=== PATIENT | male | born 1990 | race Caucasian/White ===

== ENCOUNTER → 2021-03-11 13:35 | Outpatient (BNVA) | payer SELFPAY | PROVIDERS: Visit Provider Internal Medicine ==

== ENCOUNTER 2022-06-03 18:43 | Emergency (ER) | payer OTHER, SELFPAY ==
--- NOTE | ~2022-06-03 | CT_ITS ---
EXAMINATION: CT ABDOMEN AND PELVIS WITHOUT CONTRAST CLINICAL INFORMATION: Abdominal pain. Diarrhea. COMPARISON: None TECHNIQUE: Multidetector volumetric imaging was performed from the superior aspect of the liver through the pubic symphysis. Sagittal and coronal reformatted images were obtained on the technologist's workstation. This CT examination was performed using dose optimization techniques as appropriate, variously including the following: *Automated exposure control *Adjustment of mA and/or kV according to patient size (this includes techniques or standardized protocols for targeted exams where dose is matched to indication/reason for exam; i.e. extremities or head) *Use of iterative reconstruction technique DLP: 1475 mGy-cm FINDINGS: LUNG BASES: The visualized lung bases are unremarkable. LIVER, GALLBLADDER, AND BILIARY TREE: Liver normal in size, contour and morphology. Diffuse hepatic steatosis. No focal liver lesions. Gallbladder unremarkable. No biliary dilatation. PANCREAS: Unremarkable. SPLEEN: Unremarkable. ADRENAL GLANDS: Unremarkable. KIDNEYS AND URETERS: The kidneys are normal in size, shape, and attenuation. No hydronephrosis, hydroureter, or calculi seen. No perinephric stranding. BLADDER: Unremarkable. GASTROINTESTINAL TRACT: The small and large bowel are unremarkable. The appendix is unremarkable. ABDOMINAL WALL: No significant hernia is appreciated. LYMPH NODES: Normal. VASCULAR: Unremarkable. PELVIC VISCERA: Unremarkable. OSSEOUS STRUCTURES: Unremarkable. CT/CT abdomen pelvis wo con IMPRESSION: No acute findings. Hepatic steatosis.
--- NOTE | ~2022-06-03 | XR_ITS ---
EXAMINATION: XR CHEST CLINICAL INFORMATION: Chest pain COMPARISON: None TECHNIQUE: 2 views of the chest were obtained. FINDINGS: No significant abnormality is noted involving the heart, lungs, mediastinum, bony thorax or soft tissues. XR/XR chest 2V IMPRESSION: Unremarkable examination.
[2022-06-03 19:21] VITALS: BP 158/74; PULSE 74; RESP 16; TEMP 36.8; O2SAT 100; BMI 39.9
[2022-06-03 19:41] LABS: Glucose, Whole Blood 167 mg/dL (60-115)
[2022-06-03 21:30] LABS: MANUAL DIFF FLAG NO
[2022-06-03 21:32] LABS: Basophils Percent Auto 0.2 % (0-2); Eosinophils Absolute Auto 0.1 X10*3/uL (0.0-0.4); Eosinophils Percent Auto 0.9 % (0-4); Hematocrit 43.2 % (42.0-52.0); Hemoglobin 14.9 g/dl (14.0-18.0); Imm Gran Abs Auto 0.05 X10*3/uL (0.00-0.03); Imm Gran Pct Auto 0.3 % (0.0-0.4); Lymphocytes Absolute Auto 1.5 X10*3/uL (1.2-4.9); Lymphocytes Percent Auto 9.5 % (20-40); Mean Corpuscular HGB Conc 34.5 g/dl (31.0-36.0); Mean Corpuscular Hemoglobin 25.5 pg (27.0-33.0); Mean Platelet Volume 9.9 fL (9.4-12.4); Monocytes Absolute Auto 1.1 X10*3/uL (0.1-1.2); Monocytes Percent Auto 7.1 % (2-11); Neutrophils Absolute Auto 13.2 x10*3/uL (2.0-8.3); Platelet Count 328 X10*3/uL (160-400); Red Blood Count 5.84 X10*6/uL (4.60-5.80); Red Cell Distribution Width 13.7 % (11.0-16.0); White Blood Count 16.1 X10*3/uL (4.8-10.8)
[2022-06-03 21:48] LABS: Alanine Aminotransferase 17 U/L (0-40); Albumin Level 4.3 g/dL (3.5-5.0); Alkaline Phosphatase 61 U/L (39-117); Anion Gap 12 (12-20); Aspartate Amino Transferase 9 U/L (5-37); Bilirubin Direct 0.2 mg/dL (0.0-0.5); Bilirubin Total 0.5 mg/dL (0.0-1.0); Blood Urea Nitrogen 11 mg/dL (9-16); Carbon Dioxide 26 mmol/L (22-29); Chloride 105 mmol/L (96-108); Creatinine Clr Calc Pharmacy 144.4; Estimated Glomerular Filt Rate > 60; Glucose Random 205 mg/dL (60-115); Lipase 36 U/L (8-78); Potassium 4.3 mmol/L (3.3-5.1); Sodium 139 mmol/L (135-145); Total Protein 7.7 g/dL (6.5-8.0)
--- NOTE | 2022-06-04 03:48 | ED.ABDPAIN ---
HPI - Abdominal Pain General Chief Complaint: Abdominal Pain Stated Complaint: Abdominal Pain Time Seen by Provider: 06/04/22 03:34 Source: patient Mode of arrival: ambulatory Limitations: no limitations History of Present Illness HPI narrative: 32-year-old male who presents emergency department for evaluation of chest pain, abdominal pain, nausea, vomiting and diarrhea. Patient states that he developed diffuse abdominal pain on (6 days prior to evaluation). He states the pain is been a constant pain which waxes and wanes in intensity. The pain is a sharp stabbing pain which is 10/10. He states that he has had associated nausea and has vomited 2-3 times per day. He states he has also had diarrhea daily all day long. Describes the diarrhea as a watery dark stool with no blood in the stool. He is also complaining of constant, sharp chest pain. He points to his anterior chest and epigastric area when asked to localize the pain. He states the pain is sharp and is 8/10. Patient does have a history of diabetes and takes Trulicity injections once a week. He states that he ran out of his Trulicity for 1 month and took his 1st dose again approximately 1 week prior. He denied fever or chills. He states he has had rhinorrhea. He denied sore throat, cough. Denies shortness of breath or dyspnea on exertion. MD elicited complaint: abdominal pain Related Data Previous Rx's Medication Instructions Recorded metoclopramide HCl 10 mg tablet 10 mg PO Q6H PRN nausea and 06/04/22 (Reglan) vomiting #14 tabs Allergies Allergy/AdvReac Type Severity Reaction Status Date / Time No Known Allergies Allergy Unverified 07/26/20 16:06 Review of Systems Review of Systems Yes all other systems are reviewed and are negative [facility] Past Medical History [facility] Narrative: Past medical history: Diabetes mellitus. Past surgical history: Patient had an abdominal surgery under was , most likely secondary to pyloric stenosis. Social history: He denies tobacco, alcohol and drug use. Social History Social History Use of substances other than those prescribed or required for medical reasons: No Advance Directives: No Advance Directives Information Provided: Yes Physical Exam ED Vital Signs: Vital Signs - 24 hr 06/03/22 19:06/04/22 04:31 Temperature 98.2 F Pulse Rate 74 68 Respiratory Rate 16 18 Blood Pressure 158/74 H 117/68 Pulse Oximetry 100 97 Oxygen Delivery Method Room Air Room Air BMI result Body Mass Index 39.9 Const Other: Very pleasant and cooperative male patient, does not appear to be in distress, answers all questions appropriately. Elevated BMI of 40 HENMT Head: Yes normal to inspection, Yes normocephalic and Yes atraumatic Ears: external ears normal General nose exam: Normal external nose present Face and sinus: Yes normal facial exam Mouth: Normal oral and palatal mucosa present Throat: Yes posterior oropharynx normal Eyes General: appearance normal, both eyes and all related structures Pupils: Equal, round and reactive pupils present Neck Neck: Yes normal visual inspection, Yes no lymphadenopathy, Yes trachea midline and Yes supple Chest Chest palpation & inspection: normal inspection of the chest and tenderness (Diffuse anterior wall tenderness) Resp Effort & Inspection: normal respiratory effort and able to speak in complete sentences Auscultation: clear to auscultation bilaterally Cardio Rate: regular rate Rhythm: regular rhythm Heart sounds: S1 normal heart sound present, S2 normal heart sound present and no murmurs GI Inspection: Yes normal to inspection Palpation (GI): Soft to palpation, Tenderness to palpation present (GI) in the epigastrum (Moderate), in the LLQ (Mild), in the RLQ (Mild) and suprapubicly (Mild) and no guarding Auscultation: normal bowel sounds General: Yes no CVA tenderness Back/Spine/Pelvis Back: no CVA tenderness Skin General skin exam: no rashes or lesions noted Neuro Cranial nerves: Yes CN's II-XII intact bilaterally and Yes Equal, round and reactive pupils present Cognition (Neuro): normal cognition Motor exam (neuro): 5/5 motor strength present throughout Extrem General: Yes normal to inspection Psych Appearance: grossly normal Speech and movement: Normal speech and movement present Affect: normal affect Attitude: cooperative Thought process: Normal thought process present Thought content: Normal thought content present Course Course Course Narrative: 32-year-old male who presents emergency department for evaluation of chest pain, abdominal pain, nausea, vomiting and diarrhea x6 days. Patient does have history diabetes and ran out of his Trulicity for approximately 1 month and took his for shot again approximately 1 week prior. Patient's vital signs did reveal an elevated blood pressure 158/74 otherwise was unremarkable. The patient does have chest wall and abdominal tenderness. 0405: Laboratory evaluation: Patient's WBC was elevated 16,100. LFTs and lipase were normal. Chest x-ray, EKG, troponin pending. CT scan of the abdomen pelvis without IV contrast also pending. Patient was treated with normal saline IV x1 L, Benadryl 50 mg IV, Toradol 30 mg IV and regular and 10 mg IV. 0706: The patient's troponin was below detectable limits. Chest x-ray was unremarkable. EKG was unremarkable. CT scan of the abdomen pelvis did not reveal a clear cause for the patient's symptoms. Patient did feel better after the above treatment states that his nausea abdominal pain of completely resolved. Patient most likely has a viral syndrome I did discuss this with him. He is advised to take Reglan and 10 mg, Benadryl 50 mg and ibuprofen 60 mg every 6 hours as needed for nausea, vomiting or abdominal pain. MDM - Abdominal Pain Lab Data Result diagrams: 06/03/22 21:26 06/03/22 21:26 Labs: Lab Results 06/03/22 06/03/22 06/03/22 Range/Units 19:33 21:26 21:26 WBC 16.1 H (4.8-10.8) X10*3/uL RBC 5.84 H (4.60-5.80) X10*6/uL Hgb 14.9 (14.0-18.0) g/dl Hct 43.2 (42.0-52.0) % MCV 74.0 L (80.0-98.0) fL MCH 25.5 L (27.0-33.0) pg MCHC 34.5 (31.0-36.0) g/dl RDW 13.7 (11.0-16.0) % Plt Count 328 (160-400) X10*3/uL MPV 9.9 (9.4-12.4) fL Immature Gran % (Auto) 0.3 (0.0-0.4) % Neut % (Auto) 82.0 H (45-73) % Lymph % (Auto) 9.5 L (20-40) % [place] % (Auto) 7.1 (2-11) % Eos % (Auto) 0.9 (0-4) % Baso % (Auto) 0.2 (0-2) % Lymph # (Auto) 1.5 (1.2-4.9) X10*3/uL [place] # (Auto) 1.1 (0.1-1.2) X10*3/uL Eos # (Auto) 0.1 (0.0-0.4) X10*3/uL Baso # (Auto) 0.0 (0.0-0.2) X10*3/uL Abs Immat Gran (auto) 0.05 H (0.00-0.03) X10*3/uL Absolute Neuts (auto) 13.2 H (2.0-8.3) x10*3/uL Absolute Nucleated RBC 0.000 (0.0-0.012) X10*3/uL Nucleated RBC % (auto) 0.0 (0.0-0.2) /100WBC Sodium 139 (135-145) mmol/L Potassium 4.3 (3.3-5.1) mmol/L Chloride 105 (96-108) mmol/L Carbon Dioxide 26 (22-29) mmol/L Anion Gap 12 (12-20) BUN 11 (9-16) mg/dL Creatinine 1.15 (0.5-1.4) mg/dL Estim Creat Clear Calc 144.4 Estimated GFR > 60 POC Glucose 167 H (60-115) mg/dL Random Glucose 205 H (60-115) mg/dL Calcium 9.0 (8.4-10.2) mg/dL Total Bilirubin 0.5 (0.0-1.0) mg/dL Direct Bilirubin 0.2 (0.0-0.5) mg/dL AST 9 (5-37) U/L ALT 17 (0-40) U/L Alkaline Phosphatase 61 (39-117) U/L Troponin I High Sens (<3.5-35.0) ng/L Total Protein 7.7 (6.5-8.0) g/dL Albumin 4.3 (3.5-5.0) g/dL Lipase 36 (8-78) U/L // Range/Units 21:26 WBC (4.8-10.8) X10*3/uL RBC (4.60-5.80) X10*6/uL Hgb (14.0-18.0) g/dl Hct (42.0-52.0) % MCV (80.0-98.0) fL MCH (27.0-33.0) pg MCHC (31.0-36.0) g/dl RDW (11.0-16.0) % Plt Count (160-400) X10*3/uL MPV (9.4-12.4) fL Immature Gran % (Auto) (0.0-0.4) % Neut % (Auto) (45-73) % Lymph % (Auto) (20-40) % [place] % (Auto) (2-11) % Eos % (Auto) (0-4) % Baso % (Auto) (0-2) % Lymph # (Auto) (1.2-4.9) X10*3/uL [place] # (Auto) (0.1-1.2) X10*3/uL Eos # (Auto) (0.0-0.4) X10*3/uL Baso # (Auto) (0.0-0.2) X10*3/uL Abs Immat Gran (auto) (0.00-0.03) X10*3/uL Absolute Neuts (auto) (2.0-8.3) x10*3/uL Absolute Nucleated RBC (0.0-0.012) X10*3/uL Nucleated RBC % (auto) (0.0-0.2) /100WBC Sodium (135-145) mmol/L Potassium (3.3-5.1) mmol/L Chloride (96-108) mmol/L Carbon Dioxide (22-29) mmol/L Anion Gap (12-20) BUN (9-16) mg/dL Creatinine (0.5-1.4) mg/dL Estim Creat Clear Calc Estimated GFR POC Glucose (60-115) mg/dL Random Glucose (60-115) mg/dL Calcium (8.4-10.2) mg/dL Total Bilirubin (0.0-1.0) mg/dL Direct Bilirubin (0.0-0.5) mg/dL AST (5-37) U/L ALT (0-40) U/L Alkaline Phosphatase (39-117) U/L Troponin I High Sens < 3.5 (<3.5-35.0) ng/L Total Protein (6.5-8.0) g/dL Albumin (3.5-5.0) g/dL Lipase (8-78) U/L Discharge Plan Discharge Clinical Impression: Diarrhea, Viral syndrome Abdominal pain Qualifiers: Abdominal location: generalized Qualified Code(s): R10.84 - Generalized abdominal pain Vomiting Qualifiers: Nausea presence: with nausea Patient Disposition: Home, Self-Care Instructions: Viral Syndrome (ED) Additional Instructions: Your white blood cell count was elevated at 16,000, this goes along with inflammation or infectious process. Your chest x-ray was normal. Your EKG was unremarkable for The CT scan of your abdomen pelvis was unremarkable and did not reveal a clear cause for your symptoms. Your symptoms are most likely caused by a viral infection. Stay on a simple diet (alton-bananas, rice, applesauce, tea and toast) for 1-2 days. Continue taking Imodium as needed for diarrhea. For nausea, vomiting abdominal pain take the following 3 medications together every 6 hours. Reglan (metoclopramide) in 10 mg, 1 pill Benadryl 25 mg, 2 pills Ibuprofen 200 mg pills, 3 pills. These medications will make you sleepy, do not drive while taking these medications. Follow-up with your doctor in 2 days. Please return to the emergency department if your symptoms get worse or if you develop any symptoms that are concerning to you. Prescriptions: New metoclopramide HCl [Reglan] 10 mg tablet 10 mg PO Q6H PRN (Reason: nausea and vomiting) Qty: 14 0RF
--- NOTE | 2022-06-04 03:50 | ECG_ITS ---
Test Reason : CHEST PAIN Blood Pressure : / mmHG Vent. Rate : 069 BPM Atrial Rate : 069 BPM P-R Int : 172 ms QRS Dur : 084 ms QT Int : 370 ms P-R-T Axes : 035 016 006 degrees QTc Int : 396 ms Artifact in tracing Normal sinus rhythm Possible Inferior infarct , age undetermined Abnormal ECG No previous ECGs available Referred By: Dalton Lane Electronically Signed By:ANDERS AMAYA
[2022-06-04] MEDS: Metoclopramide HCl 10 MG/2 ML VIAL IVPUSH (04:23)
[2022-06-04] MEDS: 0.9 % Sodium Chloride 1,000 ML 999 ML IV (04:23)
[2022-06-04] MEDS: diphenhydrAMINE HCL 50 MG/ML VIAL IVPUSH (04:23)
[2022-06-04] MEDS: Ketorolac Tromethamine 15 MG/ML VIAL 30 MG IVPUSH (04:23)
[2022-06-04 04:26] LABS: Troponin-I High Sensitivity < 3.5 ng/L (<3.5-35.0)
[2022-06-04 04:31] VITALS: BP 117/68; PULSE 68; RESP 18; O2SAT 97
[2022-06-04] MEDS: Magnesium Hydrox/Alum Hydrox 30 ML ORAL.SUSP PO (04:50)
== END 2022-06-04 07:33 | disposition home or self-care (01) ==
PROVIDERS: Emergency Provider Emergency Medicine Emergency Medical Services; PCP Nurse Practitioner Family
DX: B34.9 Viral infection, unspecified (principal); R10.84 Generalized abdominal pain; R19.7 Diarrhea, unspecified; R11.2 Nausea with vomiting, unspecified; E11.9 Type 2 diabetes mellitus without complications
CPT/HCPCS: 36415; 71046; 74176; 80053; 82248; 82947; 83690; 84484; 85025; 93005; 96361; 96374; 96375; 99284; 99285; J1200; J1885; J2765

== ENCOUNTER 2025-04-12 10:36 | Emergency (ER) | payer BC, SELFPAY ==
--- NOTE | ~2025-04-12 | XR_ITS ---
EXAMINATION: XR HAND 3 OR MORE VIEWS RIGHT HISTORY: lac 3rd MCP, punch injury, pain 5th digit COMPARISON: There are no prior studies available for comparison. FINDINGS: Three views of the right hand are submitted. Osseous mineralization is normal. There is no fracture or dislocation. The joint spaces are preserved. The soft tissues are unremarkable. XR/XR hand RT min 3V IMPRESSION: Unremarkable examination of the right hand. Electronically signed by: Lm Junior MD 04/12/2025 12:54 PM EDT
[2025-04-12 10:43] VITALS: BP 134/77; PULSE 71; RESP 18; TEMP 35.9; O2SAT 97; BMI 38.8
--- NOTE | 2025-04-12 11:02 | ED_ITS ---
HPI - Wound/Laceration General Chief Complaint: Wound/Laceration Stated Complaint: R Hand Lac 04/12/25 Time Seen by Provider: 04/12/25 11:02 Source: patient Mode of arrival: ambulatory Limitations: no limitations History of Present Illness ED Provider: RYLEE MORELOS PA-C HPI narrative: 34 year old right hand dominant male presents to the ED for evaluation of laceration to right hand sustained prior to arrival in ED today. Patient reports punching a plate this morning, causing him to sustain a laceration to the base of his right 3rd finger. States the plate broke however does not believe there is any retained portion of the plate in his laceration. He also reports pain to his right 5th digit. Denies any difficulty moving his fingers. Unsure of last tetanus status. No other complaints. Related Data Previous Rx's ?Medication ?Instructions ?Recorded metoclopramide HCl 10 mg tablet 10 mg PO Q6H PRN nausea and 06/04/22 (Reglan) vomiting #14 tabs Allergies Allergy/AdvReac Type Severity Reaction Status Date / Time No Known Allergies Allergy Verified 04/12/25 10:44 Review of Systems Review of Systems: Constitutional: No fever, chills, fatigue, night sweats, weight changes ENT/Mouth: No ear pain, hearing loss, nasal congestion, sinus pain, rhinorrhea, sore throat Eyes: No eye pain, swelling, redness, vision changes, discharge Cardio: No chest pain, palpitations, ACEVEDO, orthopnea, peripheral edema Pulm: No SOB, cough, sputum, wheezing, dyspnea, hemoptysis GI: No nausea, vomiting, hematemesis, abdominal pain, diarrhea, constipation, hematochezia, melena : No irregular bleeding, dysuria, frequency, urgency, hesitancy, hematuria, flank pain, urinary flow changes, urinary incontinence or retention MSK: No back pain, neck pain, joint pain, myalgias Skin: No lesions, rashes, +laceration Neuro: No weakness, numbness, paresthesias, LOC, dizziness, headache Psych: No anxiety/panic, depression, SI/HI, AH/VH All other systems reviewed and are negative. [facility] Past Medical History Attestation statement: The following information was validated with the patient. Source: old records reviewed and nursing notes reviewed Physical Exam Vital Signs: Vital Signs: Last Vital Signs Temp 96.7 F L 04/12/25 13:21 Pulse 71 04/12/25 13:21 Resp 18 04/12/25 13:21 BP 134/77 04/12/25 13:21 Pulse Ox 97 04/12/25 13:21 O2 Del Method Room Air 04/12/25 10:43 BMI result Body Mass Index 38.8 vital signs stable General: Well appearing, in no acute distress. Skin: Warm, dry, intact. No rashes or lesions. Head: Normocephalic, atraumatic. Cardiac: Chest wall symmetric. RRR Lungs: Normal respiratory effort without accessory muscle use. CTA bilaterally Back: No midline spinous or paraspinal tenderness. No step off deformity. Ext: +1 cm linear laceration overlying dorsal aspect of right 3rd MCP. FROM intact to 3rd MCP, PIP, DIP. finger strength intact. director funeral strength intact. minimal swelling noted to dorsal aspects of right 3-5th MCPs. no obvious deformity. 2+ radial pulse. Neuro: AOx3. Normal speech. Ambulating with steady gait. Course Course Course Narrative: X-ray right hand without retained foreign body. No fracture. Laceration repaired with 2 3-0 nylon sutures. Patient tolerated well. See procedure note. Advised patient to return in 7-10 days for suture removal. Patient has remained stable throughout ED visit today. Discussed worrisome signs and symptoms and when to return to the ED. All questions answered at this time. Patient is agreeable with disposition and stable for discharge. Medications Administered Discontinued Medications Generic Name Dose Route Start Last Admin Trade Name Freq PRN Reason Stop Dose Admin Diphtheria/Tetanus/Acell Pertussis 0.5 ml 04/12/25 11:05 04/12/25 12:07 Diphth,Pertus(Acell),Tet Adult 0.5 Ml Syringe IM 04/12/25 11:06 0.5 ml .ONCE ONE Administration Lidocaine HCl 10 ml 04/12/25 11:34 04/12/25 11:43 Lidocaine Hcl 1 % Mpf 5 Ml Vial INFILTRATI 04/12/25 11:35 10 ml ONCE ONE Administration Medical Decision Making Medical Decision Making MDM Narrative: 34 year old right hand dominant male presents to the ED for evaluation of laceration to right hand sustained prior to arrival in ED today. vital signs st able. he is well appearing and in NAD. on exam, there is a 1 cm linear laceration overlying dorsal aspect of right 3rd MCP. FROM intact to 3rd MCP, PIP, DIP. finger strength intact. director funeral strength intact. minimal swelling noted to dorsal aspects of right 3-5th MCPs. no obvious deformity. 2+ radial pulse. Differential diagnosis includes abrasion, laceration, fracture. Unlikely ligament or tendon injury. Plan for xrays, tdap booster, lac repair and disposition. Differential Diagnosis Differential Diagnoses: The differential diagnosis associated with the presentation includes as above. Admission/Observation not indicated. Independent Interpretation I performed an independent interpretation of an: Plain X-Ray Interpretation: XR right hand without fracture or dislocation, no retained foreign body Radiology Impression Discussion of test interpretation with radiology: I have reviewed the radiologist's reading. Radiologist Impression: Date of Service: 04/12/25 Procedure(s): XR hand RT min 3V Accession Number(s): [id number] cc: Hansa Del Rosario PROGRAMMER OPERATOR NUMERICAL CONTROL; Rylee Morelos PA~ EXAMINATION: XR HAND 3 OR MORE VIEWS RIGHT HISTORY: lac 3rd MCP, punch injury, pain 5th digit COMPARISON: There are no prior studies available for comparison. FINDINGS: Three views of the right hand are submitted. Osseous mineralization is normal. There is no fracture or dislocation. The joint spaces are preserved. The soft tissues are unremarkable. XR/XR hand RT min 3V IMPRESSION: Unremarkable examination of the right hand. Electronically signed by: Lm Junior MD 04/12/2025 12:54 PM EDT External Record Review External record reviewed: Inpatient record Prescription Management I considered prescription management with: Pain Medication Social Determinants Patient?s care significantly limited by Social Determinants of Health including: Other Social Determinant of Health Procedures Laceration Laceration 1: Site: upper extremity (finger) Side (If applicable): right Size (cm): 2 Description: linear Depth: simple, single layer Local Anesthetic: lidocaine 1% Amount of anesthesia used (mL): 1 Pre-repair: wound explored, irrigated extensively and deep structures intact Skin layer closed with: nylon Size (cm): 3-0 Number of sutures: 2 Technique: simple, interrupted Critical Care Time Critical Care Time Critical Care Time: No Discharge Plan Discharge Clinical Impression: Hand laceration Patient Disposition: Home, Self-Care Instructions: Care For Your Stitches (ED), Laceration (ED) Additional Instructions: You have been evaluated in the Emergency Department today for a laceration to your right hand. Your laceration was repaired in the ED with 2 sutures.? Your tetanus vaccination was also updated and will be valid for 5-10 years. Please keep the area surrounding the laceration clean and dry. Do not get the area wet for 24 hours. After 24 hours, you may clean the area with a non-scented soap and pat to dry. Please keep the area out of the sunlight for the next 6 months to help prevent scarring.? If you develop redness or swelling at the site of your laceration or note any discharge/ fluid coming from the laceration, please come back to the ER for a wound check. The xray of your right hand does not reveal any fractures. I recommend you take 600mg ibuprofen every 6 hours or Tylenol 650mg every 6 hours as needed for pain. If needed, you can alternate these medications so that you take one medication every 3 hours. For example, at noon take ibuprofen, then at 3pm take tylenol, then at 6pm take ibuprofen. Please follow up with your primary care physician in 7-10 days for suture removal. You may also return to the ER or another urgent care facility for this service. Return to the Emergency Department if you experience discharge from your laceration, redness around your laceration, warmth around your laceration, fever, vomiting, numbness, tingling, or any other concerning symptoms. In the case of an emergency call 911. Prescriptions: No Action metoclopramide HCl [Reglan] 10 mg tablet 10 mg PO Q6H PRN (Reason: nausea and vomiting) Qty: 14 0RF Referrals: Hansa Del Rosario CNP [Primary Care Provider] - Stand Alone Forms: Work/School Release Interventions: ED Discharge Assessment Last Done: 04/12/25 13:21 Discharge Date/Time: 04/12/25 13:22 Print Language: Uzbek
--- NOTE | 2025-04-12 11:37 | MHC.EDTECH ---
three lacs on r hand was cleaned with betadine and saline mixture. pt tolerated well
[2025-04-12] MEDS: Lidocaine HCl 1 % MPF 5 ML VIAL 10 ML INFILTRATI (11:43)
--- OUTSIDE RECORDS SUMMARY | 2025-04-12 11:50 | XMS_ITS | Data Portability ---
Author Organization [facility] [id number] Address [address] [place] [address] Care Team Providers Care Radiology Technician Name Role Phone Unavailable Bacon Stringer Assessment No assessment recorded. Plan of Treatment Reminders Order Date Submit Date Provider Last Modified By Organization Details Last Modified Time Details Appointments None record ed. Lab None record ed. Referral None record ed. Procedures None record ed. Surgeries None record ed. Imaging None record ed. Medication Orders None record ed. Patient TargetsNo targets recorded. Patient InstructionsNo instructions recorded. Reason for Referral None Reported. Procedures Surgical History Date Name Laterality Status Provider Name and Address Organization Details Recorded Time OC-UDS Send Out Template DOT completed ANA [facility] 02/23/2024 14:47:36 Imaging Results None recorded. Procedure Notes None recorded. Medical Equipment None Reported. Vitals None Recorded Social History None recorded. Functional Status None recorded. Mental Status None recorded. Family History Nothing Reported. Medical History No medical history recorded. Past Encounters Encounter ID Performer Location Encounter Start Date Encounter Closed Date Diagnosis/Indication Diagnosis SNOMED-CT Code Diagnosis ICD10 Code Diagnosis Note [id number] [facility] [address] [place] [address] 08/20/2020 14:42:03 08/20/2020 16:41:55 [id number] [address] [place] [address] 06/26/2021 08:21:34 06/26/2021 10:27:37 [id number] [address] [place] [place] [address] 02/22/2019 18:51:45 02/22/2019 20:20:19 [id number] [address] [place] [address] 12/18/2021 08:22:42 12/18/2021 09:10:09 [id number] [address] [place] [address] 12/26/2021 08:14:30 12/26/2021 09:24:23 [id number] [address] [place] [address] 02/22/2019 18:46:27 02/22/2019 20:20:15 [id number] [address] [place] [address] 12/23/2021 10:45:22 12/23/2021 12:14:05 [id number] CHANTELL ROJAS [address] [address] 02/23/2024 14:19:52 02/23/2024 14:49:55 History and physical examination, occupation 765095376 Z02.1 Health Concerns Section Related Observation LastModified by Organization Detai ls LastModified Time None Recorded Concern Status LastModified by Organization Details LastModified Time None Recorded Advance Directives Directive None Recorded Payers Insurance Date Sequence Insurance Name Policy Number Policy [place] Covered Member ID [place] Member ID Guarantor Name 02/23/2024 [employer] [[id number]] KELLY Dillon 10/08/2022 [employer] [facility] Occ Med Generic (Move To Hold) [[id number]] Ghanshyam Dillon
[2025-04-12] MEDS: Diphth,Pertus(ACell),Tet Adult 0.5 ML SYRINGE IM (12:07)
[2025-04-12 13:21] VITALS: BP 134/77; PULSE 71; RESP 18; TEMP 35.9; O2SAT 97
== END 2025-04-12 13:22 | disposition home or self-care (01) ==
PROVIDERS: Emergency Provider Emergency Medicine Emergency Medical Services; PCP Nurse Practitioner Family
DX: S61.212A Laceration without foreign body of right middle finger without damage to nail, initial encounter (principal); W22.8XXA Striking against or struck by other objects, initial encounter; Y93.89 Activity, other specified; Y92.9 Unspecified place or not applicable; Y99.9 Unspecified external cause status; Z23 Encounter for immunization
CPT/HCPCS: 12001; 73130; 90471; 90715; 99282; 99284; J2003

== ENCOUNTER → 2025-04-12 11:05 | Outpatient (BNV) | payer BC, SELFPAY | PROVIDERS: Emergency Provider Emergency Medicine Emergency Medical Services; PCP Nurse Practitioner Family; Visit Provider Radiology Diagnostic Radiology | DX: M79.641 Pain in right hand (principal) | CPT/HCPCS: 73130 ==